=== PATIENT | male | born 1980 | race Caucasian/White ===

== ENCOUNTER 2016-10-19 10:56 | Emergency (ER) | payer MEDICAID, OTHER ==
[~2016-10-19] VITALS: Ht 198.1 cm; Wt 100.0 kg
[2016-10-19 10:58] VITALS: BP 131/83
[2016-10-19] MEDS: KETOROLAC 60MG/2ML VIAL IM ONE ×2 (11:57→12:10)
== END 2016-10-19 12:48 | disposition home or self-care (01) ==
LOC: ER 11:12
DX: S16.1XXA Strain of muscle, fascia and tendon at neck level, initial encounter (principal); S00.81XA Abrasion of other part of head, initial encounter; I10 Essential (primary) hypertension; Y35.893A Legal intervention involving other specified means, suspect injured, initial encounter; Y93.89 Activity, other specified; Y92.89 Other specified places as the place of occurrence of the external cause
CPT/HCPCS: 99283; J1885

== ENCOUNTER 2017-07-10 21:31 | Emergency (ER) | payer MEDICAID ==
[~2017-07-10] VITALS: Ht 198.1 cm; Wt 96.0 kg
[2017-07-10 22:13] VITALS: BP 119/74
[2017-07-11] MEDS ORDERED: TETANUS, DIPHTHERIA, PERTUSSIS VAC/PF 0.5ML (>7YR OLD) IM ONE (00:15)
[2017-07-11] MEDS ORDERED: BACITRACIN ZINC OINT UDPKT TOP ONE (00:15)
== END 2017-07-11 00:32 | disposition left against medical advice (07) ==
LOC: ER 21:31
DX: M79.642 Pain in left hand (principal); S60.512A Abrasion of left hand, initial encounter; Y04.2XXA Assault by strike against or bumped into by another person, initial encounter; Y93.89 Activity, other specified; Y92.9 Unspecified place or not applicable
CPT/HCPCS: 99282

== ENCOUNTER 2022-05-10 19:43 | Emergency (ER) | payer MEDICAID ==
[~2022-05-10] VITALS: Ht 198.1 cm; Wt 91.0 kg
[2022-05-10 19:59] VITALS: BP 117/72
== END 2022-05-10 21:33 | disposition left against medical advice (07) ==
LOC: ER 19:55
DX: Z53.21 Procedure and treatment not carried out due to patient leaving prior to being seen by health care provider (principal)

== ENCOUNTER 2022-05-11 02:53 | Emergency (ER) | payer MEDICAID ==
[~2022-05-11] VITALS: Ht 198.1 cm; Wt 91.0 kg
[2022-05-11 03:02] VITALS: BP 103/64
== END 2022-05-11 04:30 | disposition left against medical advice (07) ==
LOC: ER 02:53
DX: Z53.21 Procedure and treatment not carried out due to patient leaving prior to being seen by health care provider (principal)

== ENCOUNTER 2024-07-18 17:15 | Emergency (ER) | payer MEDICAID ==
[~2024-07-18] VITALS: Ht 198.1 cm; Wt 96.0 kg
[2024-07-18 17:50] VITALS: BP 107/64; PULSE 93; RESP 18; TEMP 98.1; O2SAT 98
[2024-07-18] MEDS ORDERED: KETOROLAC 30MG/ML VIAL IV STA (21:59)
[2024-07-18] MEDS ORDERED: VANCOMYCIN 1000MG/250ML 250 ML IV STA (21:59)
[2024-07-18 23:29] LABS: BASOPHILS % 1.3 % (0.0-2.0); EOSINOPHILS % 3.6 % (0.0-5.0); HEMATOCRIT. 38.6 % (42.0-52.0); LYMPHOCYTES % 34.9 % (20.0-50.0); MEAN CORPUSCULAR HEMOGLOBIN 30.4 pg (28.0-32.0); MEAN CORPUSCULAR HGB CONC 33.8 g/dL (31.0-37.0); MEAN CORPUSCULAR VOLUME 89.9 fL (80.0-94.0); MEAN PLATELET VOLUME 6.9 fl (7.4-10.4); NEUTROPHILS % 50.2 % (40.0-76.0); PLATELET 319 x1000/uL (130-400); RED BLOOD CELL COUNT 4.29 mill/uL (4.7-6.1); RED CELL DISTRIBUTION WIDTH 13.2 % (11.6-14.6); WHITE BLOOD COUNT 9.5 x1000/uL (4.5-11.0)
[2024-07-18 23:40] LABS: CHLORIDE 107 mEq/L (98-107); POTASSIUM 3.9 mEq/L (3.5-5.1); SODIUM 141 mEq/L (136-145)
[2024-07-18 23:41] LABS: CALCIUM 9.3 mg/dL (8.7-10.4); CARBON DIOXIDE 25 mEq/L (21-32)
[2024-07-18 23:46] LABS: CREATININE 0.9 mg/dL (0.6-1.3); GLUCOSE 105 mg/dL (70-105); UREA NITROGEN BLOOD 14 mg/dL (9-23)
[2024-07-18 23:48] LABS: ALANINE AMINOTRANSFERASE 20 IU/L (10-49); ALBUMIN 4.2 g/dL (3.2-4.8); ASPARTATE AMINOTRANSFERASE 17 IU/L (<34); BILIRUBIN TOTAL 0.3 mg/dL (0.1-1.0); PROTEIN TOTAL 6.8 g/dL (6.0-8.3)
[2024-07-19] MEDS ORDERED: HYDROCODONE/ACETAMINOPHEN 5/325MG TABLET PO PRN (00:15)
[2024-07-19] MEDS ORDERED: ONDANSETRON HCL 4MG/2ML INJ IV PRN (00:15)
[2024-07-19] MEDS ORDERED: HYDROCODONE/ACETAMINOPHEN 10/325MG TABLET PO PRN (00:15)
[2024-07-19] MEDS ORDERED: SODIUM CHLORIDE 0.9% 1,000 ML IV SCH (00:15)
[2024-07-19] MEDS ORDERED: ENOXAPARIN 40MG/0.4ML SYR SUBCUT SCH (00:15)
[2024-07-19] MEDS ORDERED: ACETAMINOPHEN 325MG TABLET PO PRN ×2 (00:15)
[2024-07-19] MEDS ORDERED: DIPHENHYDRAMINE 50MG/ML VIAL IV PRN (00:15)
[2024-07-19] MEDS ORDERED: VANCOMYCIN 1.5GM PMX (XELLIA) 300 ML IV NR (00:30)
[2024-07-19] MEDS ORDERED: CEFTRIAXONE 1GM/50ML 50 ML IV SCH (00:30)
[2024-07-19] MEDS ORDERED: VANCOMYCIN 750MG PREMIX 150 ML IV SCH (15:00)
== END 2024-07-19 00:13 | disposition left against medical advice (07) ==
LOC: ER 17:15 → EDBEDREQ 18:32 → ER 07-19 00:13
DX: L03.115 Cellulitis of right lower limb (principal); E78.2 Mixed hyperlipidemia; F17.210 Nicotine dependence, cigarettes, uncomplicated
CPT/HCPCS: 36415; 71045; 80053; 85025; 93971; 99284; J3370

== ENCOUNTER 2024-08-13 21:58 | Emergency (ER) | payer MEDICAID ==
[~2024-08-13] VITALS: Ht 198.1 cm; Wt 96.0 kg
[2024-08-13 22:25] VITALS: O2SAT 98
[2024-08-13 22:30] VITALS: BP 121/75; PULSE 90; RESP 14; TEMP 36.8; O2SAT 98
== END 2024-08-14 02:00 | disposition left against medical advice (07) ==
LOC: ER 22:05
DX: M79.673 Pain in unspecified foot (principal); Z53.21 Procedure and treatment not carried out due to patient leaving prior to being seen by health care provider